=== PATIENT | male | born 1995 | race Two or more races ===

== ENCOUNTER 2025-05-16 05:45 | Emergency (ER) | payer OTHER ==
[~2025-05-16] VITALS: Ht 177.8 cm; Wt 74.8 kg
[2025-05-16] MEDS ORDERED: TRAMADOL HCL 50 MG TABLET PO ONE (08:30)
[2025-05-16 08:40] LABS: BASO % 0.3 % (0.1-1.2); EOS # 0.50 (0.04-0.54); EOS % 7.8 % (0.7-7.0); LYMPH # 1.74 (1.18-3.74); LYMPH % 27.3 % (19.3-53.1); MEAN PLATELET VOLUME 10.50 fl (9.4-12.4); MONO # 0.51 (0.24-0.82); MONO % 8.0 % (4.7-12.5); NEUT # 3.58 (1.56-6.13); NEUT % 56.3 % (34.0-71.1); RED CELL DISTRIBUTION WIDTH 13.2 % (11.6-14.4)
[2025-05-16 09:09] LABS: ALT/SGPT 44.0 U/L (12-78); AST/SGOT 29.0 U/L (15-37); BILIRUBIN TOTAL 0.4 mg/dL (0.3-1.2); BUN CREA RATIO 30.0 (7.0-25.0); CREATININE SERUM 0.9 mg/dL (0.70-1.30); GFR 99.08; GLOBULINA 3.4 G/DL (2.4-3.5); GLUCOSE FASTING 101.0 mg/dL (65-100); OSMOLALITY SERUM 285.0 MOSM/KG (275-295)
[2025-05-16 09:27] LABS: COVID-19 AG NEGATIVE (NEGATIVE)
[2025-05-16] MEDS ORDERED: BUTALBIT-ACETA1 EACH PO (09:55)
== END 2025-05-16 10:14 | disposition home or self-care (01) ==
LOC: ER 05:45
PROVIDERS: General Practice
DX: R51.9 Headache, unspecified (principal); Z20.822 Contact with and (suspected) exposure to COVID-19

== ENCOUNTER 2025-05-23 12:53 | Emergency (ER) | payer OTHER ==
[~2025-05-23] VITALS: Ht 177.8 cm; Wt 73.5 kg
[~2025-05-23 12:53] MED LIST: BUTALBIT-ACETA1 EACH PO
[2025-05-23] MEDS ORDERED: 0.9 % SODIUM CHLORIDE 1,000 ML IV STA (17:19)
[2025-05-23] MEDS ORDERED: DIPHENHYDRAMINE HCL 50 MG/ML VIAL 1ML IM STA (17:20)
[2025-05-23] MEDS ORDERED: DEXAMETHASONE SODIUM PHOSPHATE 4 MG/ML VIAL IM STA (17:21)
[2025-05-23] MEDS ORDERED: KETOROLAC TROMETHAMINE 30 MG VIAL IM STA (17:21)
[2025-05-23] MEDS ORDERED: KETOROLAC TROMETHAMINE 30 MG VIAL ONE (17:40)
[2025-05-23] MEDS ORDERED: DEXAMETHASONE SODIUM PHOSPHATE 4 MG/ML VIAL ONE (17:40)
[2025-05-23] MEDS ORDERED: DIPHENHYDRAMINE HCL 50 MG/ML VIAL 1ML ONE (17:40)
[2025-05-23 18:23] LABS: BASO % 0.4 % (0.1-1.2); EOS # 0.40 (0.04-0.54); EOS % 5.6 % (0.7-7.0); LYMPH # 1.76 (1.18-3.74); LYMPH % 24.4 % (19.3-53.1); MEAN PLATELET VOLUME 10.70 fl (9.4-12.4); MONO # 0.51 (0.24-0.82); MONO % 7.1 % (4.7-12.5); NEUT # 4.49 (1.56-6.13); NEUT % 62.4 % (34.0-71.1); RED CELL DISTRIBUTION WIDTH 13.1 % (11.6-14.4)
[2025-05-23 18:52] LABS: ALT/SGPT 53.0 U/L (12-78); AST/SGOT 24.0 U/L (15-37); BILIRUBIN TOTAL 0.35 mg/dL (0.3-1.2); BUN CREA RATIO 24.0 (7.0-25.0); CREATININE SERUM 0.88 mg/dL (0.70-1.30); GFR 101.68; GLOBULINA 3.7 G/DL (2.4-3.5); GLUCOSE FASTING 96.0 mg/dL (65-100); OSMOLALITY SERUM 282.0 MOSM/KG (275-295)
[2025-05-23] MEDS ORDERED: MELATONIN10 MG PO (19:59)
[2025-05-23] MEDS ORDERED: INDOMETHACIN50 M1 PO (19:59)
== END 2025-05-23 20:39 | disposition home or self-care (01) ==
LOC: ER 12:53
PROVIDERS: General Practice
DX: R51.9 Headache, unspecified (principal)